=== PATIENT | female | born 1940 ===

== ENCOUNTER → 2017-04-26 | Outpatient (REF) | payer MEDICARE | LOC: M LAB REF 19:05 | PROVIDERS: ATTEND Physician Assistant | DX: L02.212 Cutaneous abscess of back [any part, except buttock and flank] (principal) ==

== ENCOUNTER → 2018-05-16 | Outpatient (REF) | payer MEDICARE | LOC: M LAB REF 17:23 | DX: N39.0 Urinary tract infection, site not specified (principal) | CPT/HCPCS: 87186 ==